=== PATIENT | male | born 1990 | race Hispanic/Latino ===

== ENCOUNTER 2022-12-15 18:32 | Emergency (ER) | payer BC ==
--- OUTSIDE RECORDS SUMMARY | 2022-12-15 18:35 | XMS REPORT | Continuity of Care Document ---
:1990 Author Organization [facility] t Address [address] [facility] [address] [place] [address] Care Team Providers Name Role Phone Zuniga_S Attending Clinician Unavailable Zuniga_S Admitting Clinician Unavailable Payers Payer Name Policy Type Policy Number Effective Date Expiration Date S dexter [facility] [place] [id number] Problems Condition Condition Condition Status Onset Resolution Last Treating Co mments Source Name Details Category Date Date Treatment Clinician Date Diabetes Diabetes Problem Active 2021-08 [place] mellitus Mellitus 0-07 da 00:00: Medical 00 Group History History Problem Active 2021-08 [place] and 0-07 da physical Physical 00:00: Medica l examinatio Examinatio 00 Gr oup n, n, pre-employ Pre-employ ment ment Allergies, Adverse Reactions, Alerts This patient has no known allergies or adverse reactions. Social History Smoking Status Start Date Stop Date Source Former Smoker [facility] Medications Ordered Filled Start Stop Current Ordering Indication Dosage Frequency Signature Comments Components Source Medication Medication Date Date Medication? Clinician (SIG) Name Name Bydureon Bydureon No Q1W Bydureon [place] BCise 2 BCise 2 BCise 2 da mg/0.85 mL mg/0.85 mL mg/0.85 mL Medical subcutaneou subcutaneou subcutaneo Group s s us auto-inject auto-inject auto-injec or Inject or Inject tor Inject every week every week every week by by by subcutaneou subcutaneou subcutaneo s route. s route. us route. metformin metformin No 1 BID metformin [place] 1,000 mg 1,000 mg 1,000 mg da tablet Take tablet Take tablet Medical 1 tablet 1 tablet Take 1 Group twice a day twice a day tablet by oral by oral twice a route. route. day by oral route. pioglitazon pioglitazon No pioglitazo [place] 1 tablet e 1 tablet ne 1 da daily daily tablet Medical daily Group Vital Signs Vital Name Observation Time Observation Value Comments Source BP Diastolic 2022-05-26 00:00:00 81 mm[Hg] [facility] Height 2022-05-26 00:00:00 72 [in_i] [facility] BMI (Body Mass 2022-05-26 00:00:00 35 kg/m2 [facility] Group BP Systolic 2022-05-26 00:00:00 118 mm[Hg] [facility] Body Weight 2022-05-26 00:00:00 4132.8 [oz_av] [facility] Procedures This patient has no known procedures. Plan of Care Planned Activity Planned Date Details Comments Source Instructions [facility] Encounters Start End Encounter Admission Attending Care Care Encounter Source Date/Time Date/Time Type Type Clinicians Facility Department ID 2022-05-26 2022-05-26 [facility] [id number] [place] 00:[facility]:00 00:00:00 [facility] 2022-05-26 2022-05-26 [facility] [place] - [id number] [place] 00:00:00 00:00:00 [facility] j[facility] CRNA-C: [facility], [facility] [address] [facility] [place] [address] , Ph. 2022-05-24 2022-05-24 Outpatient [facility]iga[facility]S [facility] [id number] [place] 00:00:00 00:00:00 [facility] Results This patient has no known results.
--- NOTE | 2022-12-15 19:04 | ER ---
Nurse's Notes [facility] Name: Ortega Boston Age: 32 yrs Sex: Male : 1990 Arrival Date: 12/15/2022 Time: 18:32 Bed IW7 Private MD: Diagnosis: Goyal's palsy Presentation: 12/15 18:51 Chief complaint: Patient states: Pt left sided weakness starting at 0830 with numbness cm9 on left side, noted left facial droop; pt states did not get better throughout the day. Coronavirus screen: Vaccine status: Patient reports receiving the 2nd dose of the covid vaccine. At this time, the client does not indicate any symptoms associated with coronavirus-19. Ebola Screen: No symptoms or risks identified at this time. Initial Sepsis Screen: Does the patient meet any 2 criteria? No. Patient's initial sepsis screen is negative. Does the patient have a suspected source of infection? No. Patient's initial sepsis screen is negative. Risk Assessment: Do you want to hurt yourself or someone else? Patient reports no desire to harm self or others. Onset of symptoms. 18:51 Method Of Arrival: Ambulatory cm9 18:51 Acuity: AMBER 2 cm9 Triage Assessment: 19:01 General: Appears in no apparent distress. Behavior is calm, cooperative, appropriate cm9 for age. Pain: Denies pain. Neuro: Level of Consciousness is awake, alert, obeys commands, Oriented to person, place, time, situation, Product Safety Technical Assistant are equal bilaterally Moves all extremities. Gait is steady, Speech is normal, Facial droop on left, Pupils are PERRLA, Numbness in left cheek, left zygomatic area and left mandible Reports numbness in left zygomatic area, left cheek and left mandible. Cardiovascular: Patient's skin is warm and dry. Respiratory: Airway is patent Respiratory effort is even, unlabored. GI:. Musculoskeletal: Circulation, motion, and sensation intact. Capillary refill < 3 seconds, Range of motion: intact in all extremities. Historical: - Allergies: 19:01 No Known Allergies; cm9 - PMHx: 19:01 Diabetes mellitus; cm9 - PSHx: 19:01 None; cm9 - Immunization history:: Adult Immunizations up to date, Client reports receiving the 2nd dose of the Covid vaccine. - Social history:: Smoking status: Patient denies any tobacco usage or history of. Patient uses alcohol, occasionally. Patient/guardian denies using street drugs, IV drugs. Screenin:12 [facility] ED Fall Risk Assessment (Adult) History of falling in the last 3 months, vc1 including since admission No falls in past 3 months (0 pts) Confusion or Disorientation No (0 pts) Intoxicated or Sedated No (0 pts) Impaired Gait No (0 pts) Mobility Assist Device Used No (0 pt) Altered Elimination No (0 pt) Score/Fall Risk Level 0 - 2 = Low Risk Oriented to surroundings, Maintained a safe environment, Educated pt \T\ family on fall prevention, incl call for assistance when getting out of bed. Abuse screen: Denies threats or abuse. Nutritional screening: No deficits noted. Tuberculosis screening: No symptoms or risk factors identified. Vital Signs: 18:51 BP 144 / 101; Pulse 83; Resp 19; Temp 98.1; Pulse Ox 94% on R/A; Weight 113.4 kg; cm9 Height 6 ft. 0 in. ; Pain 0/10; 18:51 Body Mass Index 33.91 (113.40 kg, 182.88 cm) cm9 18:51 Pain Scale: Adult cm9 ED Course: 18:33 Patient arrived in ED. ts1 19:01 Triage completed. cm9 19:01 Arm band placed on right wrist. cm9 19:03 Roe Sanchez DO is Attending Physician. ms3 19:03 Lenin Nails DO is Referral Physician. ms3 19:12 No provider procedures requiring assistance completed. Patient did not have IV access vc1 during this emergency room visit. Administered Medications: No medications were administered Medication: 19:12 VIS not applicable for this client. vc1 Outcome: 19:03 Discharge ordered by . ms3 19:12 Discharged to home ambulatory. vc1 19:12 Condition: good 19:12 Discharge instructions given to patient, Instructed on discharge instructions, follow up and referral plans. medication usage, Demonstrated understanding of instructions, follow-up care, medications, Prescriptions given X 2. 19:12 Patient left the ED. vc1 Signatures: Roe Sanchez DO DO ms3 Rima Tenorio RN RN vc1 Nazia Azevedo RN RN cm9 Jaylyn Reyez PAS PAS ts1
[2022-12-15 19:47] VITALS: BP 144/101; TEMP 98.1; O2SAT 94
--- NOTE | 2022-12-18 10:51 | EDPHYS ---
Physician Documentation [facility] Name: Ortega Boston Age: 32 yrs Sex: Male : 1990 Arrival Date: 12/15/2022 Time: 18:32 Bed IW7 Private MD: ED Physician Roe Sanchez HPI: 12/15 19:36 This 32 yrs old Male presents to ER via Ambulatory with complaints of Left ms3 facial complaints. 19:36 32-year-old male with past medical history of diabetes presents for left facial ms3 weakness that he noted at 8:30 AM. Patient states he is unable to whistle. Patient denies headache, weakness of either upper extremity or lower extremities, or numbness of upper or lower extremities.. Historical: - Allergies: 19:01 No Known Allergies; cm9 - PMHx: 19:01 Diabetes mellitus; cm9 - PSHx: 19:01 None; cm9 - Immunization history:: Adult Immunizations up to date, Client reports receiving the 2nd dose of the Covid vaccine. - Social history:: Smoking status: Patient denies any tobacco usage or history of. Patient uses alcohol, occasionally. Patient/guardian denies using street drugs, IV drugs. ROS: 19:36 Constitutional: Negative for fever, and chills. Neck: Negative for injury, pain, and ms3 swelling, Cardiovascular: Negative for chest pain, and palpitations. Respiratory: Negative for shortness of breath, cough, wheezing, and pleuritic chest pain, Abdomen/GI: Negative for abdominal pain, nausea, vomiting, diarrhea, and constipation, MS/Extremity: Negative for injury and deformity, Skin: Negative for injury, rash, and discoloration. 19:36 Neuro: Positive for Left facial droop. Exam: 19:36 CT study not indicated or reported. Reason for not performing CT: Goyal's palsy ms3 19:36 Constitutional: This is a well developed, well nourished patient who is awake, alert, and in no acute distress. Head/Face: Normocephalic, atraumatic. Neck: Trachea midline, no cervical lymphadenopathy. Supple, full range of motion without nuchal rigidity, or vertebral point tenderness. No Meningismus. Chest/axilla: Normal chest wall appearance and motion. Nontender with no deformity. Cardiovascular: Regular rate and rhythm with a normal S1 and S2. No gallops, murmurs, or rubs. Normal PMI, no JVD. No pulse deficits. Respiratory: Lungs have equal breath sounds bilaterally, clear to auscultation and percussion. No rales, rhonchi or wheezes noted. No increased work of breathing, no retractions or nasal flaring. Abdomen/GI: Soft, non-tender, with normal bowel sounds. No distension or tympany. No guarding or rebound. No evidence of tenderness throughout. Skin: Warm, dry with normal turgor. Normal color with no rashes, no lesions, and no evidence of cellulitis. MS/ Extremity: Pulses equal, no cyanosis. Neurovascular intact. Full, normal range of motion. 19:36 Neuro: Orientation: is normal, Mentation: is normal, Memory: is normal, Cranial nerves: facial droop noted on left, with forehead involved. Cerebellar function: is grossly normal based on the patient's age, normal finger to nose testing, Motor: is normal, Sensation: is normal, Gait: is steady, at a normal pace, without difficulty. Vital Signs: 18:51 BP 144 / 101; Pulse 83; Resp 19; Temp 98.1; Pulse Ox 94% on R/A; Weight 113.4 kg; cm9 Height 6 ft. 0 in. ; Pain 0/10; 18:51 Body Mass Index 33.91 (113.40 kg, 182.88 cm) cm9 18:51 Pain Scale: Adult cm9 MDM: 19:03 Patient medically screened. ms3 19:36 Differential diagnosis: CVA, Goyal's palsy. Data reviewed: vital signs, nurses notes, ms3 and as a result, I will discharge patient. I considered the following discharge prescriptions or medication management in the emergency department. Care significantly affected by the following chronic conditions: Diabetes. Counseling: I had a detailed discussion with the patient and/or guardian regarding: the historical points, exam findings, and any diagnostic results supporting the discharge/admit diagnosis, the need for outpatient follow up, to return to the emergency department if symptoms worsen or persist or if there are any questions or concerns that arise at home. ED course: Discussed physical exam findings with patient. Patient to follow-up with Dr. Nails in 2 to 3 days. Patient understands and agrees with plan. All questions were answered. Return precautions discussed include worsening symptoms, or any other concerns. Administered Medications: No medications were administered Disposition: 12/16 13:25 Chart complete. ms3 Disposition Summary: 12/15/22 19:03 Discharge Ordered Location: Home ms3 Condition: Stable ms3 Diagnosis - Goyal's palsy ms3 Followup: ms3 - With: Lenin Nails DO - When: 2 - 3 days - Reason: Recheck today's complaints Discharge Instructions: - Discharge Summary Sheet ms3 - Goyal's Palsy, Adult ms3 Forms: - Medication Reconciliation Form ms3 - Thank You Letter ms3 - Antibiotic Education ms3 - Prescription Opioid Use ms3 Prescriptions: - Artificial Tears (PF) Ophthalmic Dropperette - instill 1 drop by OPHTHALMIC route every 2 hours; 1 dropperful; Refills: 0, ms3 Product Selection Permitted - Prednisone 20 mg Oral Tablet - take 3 tablets by ORAL route once daily for 5 days; 15 tablet; Refills: 0, ms3 Product Selection Permitted Signatures: Roe Sanchez DO DO ms3 Nazia Azevedo RN RN cm9
== END 2022-12-15 19:12 | disposition home or self-care (01) ==
LOC: ER 18:32
DX: G51.0 Bell's palsy (principal); E11.9 Type 2 diabetes mellitus without complications
CPT/HCPCS: 99283